=== PATIENT | female | born 1995 | race American Indian/Alaskan Native ===

== ENCOUNTER 2020-12-05 22:54 | Observation (INO) | payer OTHER ==
[2020-12-05] MEDS ORDERED: ALBUTEROL 2.5 MG/3 ML NEBU IH ONE (23:04)
[2020-12-05] MEDS ORDERED: SODIUM CHLORIDE 0.9% 1000 ML 1,000 ML IV ONE (23:04)
[2020-12-05] MEDS ORDERED: MAGNESIUM SULFATE 2 GM/50 ML BAG IV ONE (23:04)
[2020-12-05] MEDS ORDERED: IPRATROPIUM 0.02% NEBU 2.5 ML IH ONE (23:04)
--- NOTE | 2020-12-05 23:06 | Event Note ---
ED Screening Note Date of service: 12/05/20 Time: 23:06 ED Screening Note: 25-year-old -[place] female with a history of asthma comes in in respiratory distress. Patient states that she has a history of asthma and has been intubated in the past. This initial assessment/diagnostic orders/clinical plan/treatment(s) is/are subject to change based on patients health status, clinical progression and re- assessment by fellow clinical providers in the ED. Further treatment and workup at subsequent clinical providers discretion. Patient/guardian urged not to elope from the ED as their condition may be serious if not clinically assessed and managed. Initial orders include:
--- NOTE | 2020-12-05 23:23 | Emergency Department Report ---
ED Shortness of Breath HPI - General Chief Complaint: Adult Asthma Stated Complaint: SOB Time Seen by Provider: 12/05/20 23:12 Source: patient Mode of arrival: Ambulatory Limitations: No Limitations - History of Present Illness Initial Comments: Patient is a 25-year-old female that presents emergency room with complaints of difficulty breathing and shortness of breath, wheezing and cough. Patient states her symptoms been going on for 2 days. Patient states his symptoms are worsening. Patient states she has been intubated 3 times in the past. Patient states that she is compliant with her asthma medications. Patient denies chest pain. Patient denies fever and chills. Patient denies sputum. Patient dates her cough is dry. Patient denies recent travel. Patient denies recent international travel. Patient denies exposure to the novel coronavirus. Patient denies sick contacts. Patient denies fever and chills. . Patient denies diarrhea. Patient denies coming in contact with anybody with symptoms of the novel coronavirus. MD Complaint: shortness of breath -: Sudden Consistency: constant Improves With: rest Worsens With: exertion Known History Of: asthma Associated Symptoms: denies other symptoms Treatments Prior to Arrival: bronchodilator - Related Data Home Oxygen Therapy: No Allergies Allergy/AdvReac Type Severity Reaction Status Date / Time No Known Allergies Allergy Unverified 12/05/20 23:08 ED Review of Systems ROS: Stated complaint: SOB Other details as noted in HPI Constitutional: denies: chills, fever Eyes: denies: eye pain, eye discharge, vision change ENT: denies: ear pain, throat pain Respiratory: see HPI, cough, shortness of breath, SOB with exertion, SOB at rest, wheezing Cardiovascular: denies: chest pain, palpitations Endocrine: no symptoms reported Gastrointestinal: denies: abdominal pain, nausea, diarrhea Genitourinary: denies: urgency, dysuria, discharge Musculoskeletal: denies: back pain, joint swelling, arthralgia Skin: denies: rash, lesions Neurological: denies: headache, weakness, paresthesias Psychiatric: denies: anxiety, depression Hematological/Lymphatic: denies: easy bleeding, easy bruising ED Past Medical Hx - Past Medical History Previous Medical History?: Yes Hx Asthma: Yes Additional medical history: Intubated - Surgical History Past Surgical History?: No - Family History Family history: no significant - Social History Smoking Status: Never Smoker Substance Use Type: None ED Physical Exam - General Limitations: No Limitations General appearance: lethargic (But easily arousable.), in distress - Head Head exam: Present: atraumatic, normocephalic - Eye Eye exam: Present: normal appearance - ENT ENT exam: Present: mucous membranes dry - Neck Neck exam: Present: normal inspection - Respiratory Respiratory exam: Present: respiratory distress, wheezes, accessory muscle use, decreased breath sounds - Cardiovascular Cardiovascular Exam: Present: regular rate, normal rhythm, normal heart sounds. Absent: systolic murmur, diastolic murmur, rubs, gallop - GI/Abdominal GI/Abdominal exam: Present: soft, normal bowel sounds. Absent: distended, tenderness, guarding - Extremities Exam Extremities exam: Present: normal inspection - Back Exam Back exam: Present: normal inspection - Neurological Exam Neurological exam: Present: oriented X3 - Psychiatric Psychiatric exam: Present: normal affect, normal mood - Skin Skin exam: Present: warm, dry, intact, normal color. Absent: rash ED Course Vital Signs 12/05/20 12/05/20 12/05/20 22:59 23:30 23:35 Temperature 98.3 F 97.1 F L Pulse Rate 126 H 114 H 104 H Respiratory 16 24 27 H Rate Blood Pressure 123/103 134/97 Blood Pressure 147/90 [Left] O2 Sat by Pulse 94 100 Oximetry 12/05/20 12/05/20 12/06/20 23:39 23:45 00:01 Temperature Pulse Rate 133 H 132 H Respiratory 18 22 24 Rate Blood Pressure 179/110 163/75 Blood Pressure 134/97 [Left] O2 Sat by Pulse 100 100 Oximetry 12/06/20 12/06/20 12/06/20 00:15 00:31 00:45 Temperature Pulse Rate 115 H 116 H 111 H Respiratory 21 21 20 Rate Blood Pressure 156/87 127/71 128/80 Blood Pressure [Left] O2 Sat by Pulse 95 94 93 Oximetry 12/06/20 01:01 Temperature Pulse Rate 119 H Respiratory 18 Rate Blood Pressure 138/86 Blood Pressure [Left] O2 Sat by Pulse 100 Oximetry - Reevaluation(s) Reevaluation #1: Initial evaluation done. Patient have increased work to breathe. Patient was placed on BiPAP and given mag, Solu-Medrol and a DuoNeb. 12/05/20 23:23 0 Reevaluation #2: Patient is complaining of severe anxiety with the BiPAP. Patient will be given Ativan. 12/05/20 23:42 Reevaluation #3: Patient on BiPAP. Patient states her anxiety is better. Patient tolerating BiPAP better. Patient's work to breathe is improving. Patient's oxygen saturation is stable. 12/06/20 00:02 Reevaluation #4: I discussed all results with patient. I discussed plan of care with patient. Patient agrees with plan of care and admission. Patient to be admitted to the hospitalist service. 12/06/20 01:02 - Consultations Consultation #1: Hospitalist consulted for admission. Hospitalist to admit patient. 12/06/20 01:02 ED Medical Decision Making - Lab Data Result diagrams: 12/06/20 00:32 12/06/20 00:32 - Radiology Data Radiology results: report reviewed, image reviewed interpreted by me: Chest x-ray: No pneumonia, no pneumothorax, no foreign body, no osseous findings, no acute findings CHEST 1 VIEW 12/05/2020 11:25 PM INDICATION / CLINICAL INFORMATION: sob. COMPARISON: None available. FINDINGS: SUPPORT DEVICES: None. HEART / MEDIASTINUM: No significant abnormality. LUNGS / PLEURA: No significant pulmonary or pleural abnormality. No pneumothorax. ADDITIONAL FINDINGS: No significant additional findings. IMPRESSION: No acute abnormality. - Medical Decision Making Patient is a 25-year-old female that presents emergency room with shortness of breath and difficulty breathing. Patient found to be in status asthmaticus. Patient having increased work to breathe, cough and wheezing. Patient given a nebulizer and Solu-Medrol and magnesium and the patient continued to have increased work to breathe patient was then placed on BiPAP. Patient tolerated bypass but was making her anxious so patient was given Ativan. Patient labs done which were essentially unremarkable. Patient's chest x-ray was negative for acute finding. I personally reviewed the chest x-ray. Critical care time documented due to the multiple reassessments, prolonged time at the bedside, interpretation of diagnostics and labs. - Differential Diagnosis Status asthmaticus, shortness of breath, pneumonia, wheezing, cough, hypoxi Critical Care Time: Yes Critical care time in (mins) excluding proc time.: 35 Critical care attestation.: If time is entered above; I have spent that time in minutes in the direct care of this critically ill patient, excluding procedure time. Critical Care Time: 35 minutes Critical care time documented due to the multiple reassessments, prolonged time at the bedside, interpretation of diagnostics and labs. ED Disposition Clinical Impression: Anxiety, SOB (shortness of breath) Respiratory failure Qualifiers: Chronicity: acute Respiratory failure complication: hypoxia Qualified Code(s): J96.01 - Acute respiratory failure with hypoxia Status asthmaticus Qualifiers: Asthma severity: severe Asthma persistence: persistent Qualified Code(s): J45.52 - Severe persistent asthma with status asthmaticus Disposition: 09 OP ADMIT IP TO THIS HOSP Is pt being admited?: Yes Does the pt Need Aspirin: No Condition: Critical Time of Disposition: 01:02
[2020-12-05] MEDS ORDERED: methylPREDNISolone Sod Succinate 125 MG/2 ML INJ IV ONE (23:30)
[2020-12-05] MEDS ORDERED: methylPREDNISolone Sod Suc 1,000 MG in SODIUM CHLORIDE 0.9% 250ML 250 ML IV ONE (23:44)
[2020-12-05] MEDS ORDERED: LORazepam 2 MG/ML VIAL IV ONE (23:47)
--- NOTE | 2020-12-06 00:49 | XRay Report ---
CHEST 1 VIEW 12/05/2020 11:25 PM INDICATION / CLINICAL INFORMATION: sob. COMPARISON: None available. FINDINGS: SUPPORT DEVICES: None. HEART / MEDIASTINUM: No significant abnormality. LUNGS / PLEURA: No significant pulmonary or pleural abnormality. No pneumothorax. ADDITIONAL FINDINGS: No significant additional findings. IMPRESSION: No acute abnormality. Signer Name: Maykel Braun MD Signed: 12/06/2020 12:45 AM Workstation Name: [id number]
[2020-12-06 00:55] LABS: Basophils % (Auto) 0.4 % (0.0-1.8); Eosinophils # (Auto) 0.6 K/mm3 (0.0-0.4); Eosinophils % (Auto) 7.3 % (0.0-4.3); Hematocrit 37.1 % (30.3-42.9); Hemoglobin 12.5 gm/dl (10.1-14.3); Lymphocytes # (Auto) 1.9 K/mm3 (1.2-5.4); Lymphocytes % (Auto) 23.9 % (13.4-35.0); Mean Corpuscular HGB Conc 34 % (30-34); Mean Corpuscular Volume 89 fl (79-97); Monocytes # (Auto) 0.7 K/mm3 (0.0-0.8); Monocytes % (Auto) 8.2 % (0.0-7.3); Platelet Count 211 K/mm3 (140-440); Red Blood Count 4.19 M/mm3 (3.65-5.03); Red Cell Distribution Width 13.3 % (13.2-15.2)
[2020-12-06 01:13] LABS: Alanine Aminotransferase 12 units/L (7-56); Albumin 4.2 g/dL (3.9-5); BUN/Creatinine Ratio 8; Blood Urea Nitrogen 7 mg/dL (7-17); Calcium 8.8 mg/dL (8.4-10.2); Hemolysis Index 16
[2020-12-06] MEDS ORDERED: IPRATROPIUM 0.02% NEBU 2.5 ML IH ONE ×2 (01:43→01:52)
[2020-12-06] MEDS ORDERED: ALBUTEROL 2.5 MG/3 ML NEBU IH ONE ×2 (01:43→01:52)
--- NOTE | 2020-12-06 02:28 | History and Physical Report ---
History of Present Illness Date of examination: 12/06/20 Date of admission: 12/06/20 01:23 Chief complaint: Asthma History of present illness: Patient is a 25-year-old female that presents emergency room with complaints of difficulty breathing and shortness of breath, wheezing and cough. Patient states her symptoms been going on for 2 days. Patient states his symptoms are worsening. Patient states she has been intubated 3 times in the past. Patient states that she is compliant with her asthma medications. Patient denies chest pain. Patient denies fever and chills. Patient denies sputum. Patient dates her cough is dry. ED work-up WBC 8.0, hemoglobin 12.5, platelets 211, sodium level 139, potassium 3.5 Glucose 121, creatinine 0.9, chest x-ray no acute abnormality. Patient seen in ED at bedside. She is not in respiratory distress secondary to asthma extubation/flareup BiPAP on. Blood pressure 130/91, heart rate is 126. Patient saturation is 100% on a rate of 12 on BiPAP. Reviewed lab, medication record, vital signs. Histotechnologist Supervisor consulted. Past History Past Medical History: other (hx of asthma with multiple intubation) Social history: no significant social history Family history: no significant family history Medications and Allergies Allergies Allergy/AdvReac Type Severity Reaction Status Date / Time No Known Allergies Allergy Unverified 12/05/20 23:08 Review of Systems Constitutional: fatigue Ears, nose, mouth and throat: no epistaxis, no bleeding gums Breasts: no pain, no skin changes Cardiovascular: shortness of breath Respiratory: shortness of breath, wheezing Gastrointestinal: no melena Rectal: no hemorrhoids Musculoskeletal: no neck stiffness Integumentary: no rash, no pruritis Neurological: no head injury Psychiatric: anxiety Hematologic/Lymphatic: no easy bruising, no easy bleeding Allergic/Immunologic: no urticaria Exam - Constitutional Vitals: Temp Pulse Resp BP Pulse Ox 97.1 F L 110 H 18 143/80 100 12/05/20 23:30 12/06/20 02:08 12/06/20 02:08 12/06/20 02:01 12/06/20 02:08 General appearance: Present: severe distress, well-nourished, obese, other (Severe respiratory distress -on BIPAP) - EENT Eyes: Present: PERRL ENT: hearing intact, clear oral mucosa - Neck Neck: Present: supple, normal ROM - Respiratory Respiratory effort: normal Respiratory: bilateral: CTA - Cardiovascular Heart Sounds: Present: S1 & S2. Absent: rub, click - Extremities Extremities: pulses symmetrical, No edema Peripheral Pulses: within normal limits - Abdominal General gastrointestinal: Present: soft, non-tender, non-distended, normal bowel sounds Female genitourinary: Present: normal - Integumentary Integumentary: Present: clear, warm, dry - Musculoskeletal Musculoskeletal: gait normal, strength equal bilaterally - Psychiatric Psychiatric: appropriate mood/affect, intact judgment & insight - Neurologic Neurologic: CNII-XII intact, moves all extremities Results - Labs CBC & Chem 7: 12/06/20 00:32 12/06/20 00:32 Labs: Abnormal lab results 12/06/20 12/06/20 Range/Units 00:32 00:32 [place] % (Auto) 8.2 H (0.0-7.3) % Eos % (Auto) 7.3 H (0.0-4.3) % Eos # (Auto) 0.6 H (0.0-0.4) K/mm3 Potassium 3.5 L (3.6-5.0) mmol/L Glucose 121 H (65-100) mg/dL Total Protein 6.1 L (6.3-8.2) g/dL Assessment and Plan - Patient Problems (1) Status asthmaticus Current Visit: Yes Status: Acute Qualifiers: Asthma severity: severe Asthma persistence: persistent Qualified Code(s): J45.52 - Severe persistent asthma with status asthmaticus Plan to address problem: Secondary to extubation On BiPAP, monitor oxygen sat. Bronchodilator and systemic steroid ABGs, head of strategy and head of strategy consult Chest x-ray showed no acute finding (2) Acute respiratory failure with hypoxia Current Visit: Yes Status: Acute Plan to address problem: Respiratory failure secondary to asthma flare Continue BiPAP and monitor oxygen saturation (3) Anxiety Current Visit: Yes Status: Acute Plan to address problem: Antianxiety med as needed (4) Obesity due to excess calories Current Visit: Yes Status: Acute Plan to address problem: Will discussed lifestyle modification, including healthy diet and regular exercise when patient is stable (5) DVT prophylaxis Current Visit: Yes Status: Acute Plan to address problem: Subcutaneous Lovenox
[2020-12-06] MEDS ORDERED: MAGNESIUM HYDROXIDE (MOM) ORAL LIQD UDC PO PRN (02:30)
[2020-12-06] MEDS ORDERED: SENNOSIDES 8.6 MG TAB PO PRN (02:30)
[2020-12-06] MEDS ORDERED: METOCLOPRAMIDE 10 MG/2 ML INJ IV PRN (02:30)
[2020-12-06] MEDS ORDERED: ALUM-MAG HYDROXIDE-SIMETHICONE 200-200-20MG/5ML ORAL LIQD 30 ML PO PRN (02:30)
[2020-12-06] MEDS ORDERED: ACETAMINOPHEN 325 MG TAB PO PRN (02:30)
[2020-12-06] MEDS ORDERED: ONDANSETRON 4 MG/2 ML INJ IV PRN (02:30)
[2020-12-06] MEDS ORDERED: AZITHROMYCIN/NS 500 MG/250 ML 500 MG/250 ML BAG IV SCH (03:00)
[2020-12-06] MEDS ORDERED: ALBUTEROL 2.5 MG/3 ML NEBU IH PRN (05:19)
[2020-12-06] MEDS ORDERED: ALPRAZolam 0.25 MG TAB PO PRN (05:29)
[2020-12-06 05:40] VITALS: BP 101/35
[2020-12-06] MEDS ORDERED: methylPREDNISolone Sod Succinate 40 MG/1 ML INJ IV SCH (06:00)
[2020-12-06] MEDS ORDERED: ARFORMOTEROL 15 MCG/2 ML NEBU IH SCH (08:00)
[2020-12-06] MEDS ORDERED: BUDESONIDE 0.5 MG/2 ML NEBU IH SCH (08:00)
[2020-12-06] MEDS ORDERED: IPRATROPIUM/ALBUTEROL SULFATE 3 ML AMPUL.NEB IH SCH (08:00)
--- NOTE | 2020-12-06 09:06 | Progress Note ---
Assessment and Plan Assessment and plan: Acute asthma exacerbation Acute hypoxic respiratory failure\ Anxiety disorder Obesity due to excess calories 12/06/2020. Patient has been weaned off of BiPAP and will continue supplemental oxygen for now. Continue BiPAP as clinically indicated. Chest x-ray showed no acute finding. Follow-up serial ABGs. Continue bronchodilators/nebulizers. Continue IV steroids and empiric antibiotic. History Interval history: No new issues overnight. Hospitalist Physical - Constitutional Vitals: Temp Pulse Resp BP Pulse Ox 97.2 F L 127 H 20 101/35 94 12/06/20 05:08 12/06/20 07:13 12/06/20 07:13 12/06/20 05:08 12/06/20 05:08 General appearance: Present: no acute distress, well-nourished, obese, other (Severe respiratory distress -on BIPAP) - EENT Eyes: Present: PERRL, EOM intact ENT: hearing intact, clear oral mucosa, dentition normal - Neck Neck: Present: supple, normal ROM - Respiratory Respiratory effort: normal Respiratory: bilateral: CTA - Cardiovascular Rhythm: regular Heart Sounds: Present: S1 & S2. Absent: gallop, rub - Extremities Extremities: no ischemia, No edema, Full ROM - Abdominal General gastrointestinal: soft, non-tender, non-distended, normal bowel sounds - Integumentary Integumentary: Present: clear, warm, dry - Neurologic Neurologic: CNII-XII intact, moves all extremities Results - Labs CBC & Chem 7: 12/06/20 00:32 12/06/20 00:32 Labs: Laboratory Last Values WBC 8.0 K/mm3 (4.5-11.0) 12/06/20 00:32 RBC 4.19 M/mm3 (3.65-5.03) 12/06/20 00:32 Hgb 12.5 gm/dl (10.1-14.3) 12/06/20 00:32 Hct 37.1 % (30.3-42.9) 12/06/20 00:32 MCV 89 fl (79-97) 12/06/20 00:32 MCH 30 pg (28-32) 12/06/20 00:32 MCHC 34 % (30-34) 12/06/20 00:32 RDW 13.3 % (13.2-15.2) 12/06/20 00:32 Plt Count 211 K/mm3 (140-440) 12/06/20 00:32 Lymph % (Auto) 23.9 % (13.4-35.0) 12/06/20 00:32 [place] % (Auto) 8.2 % (0.0-7.3) H 12/06/20 00:32 Eos % (Auto) 7.3 % (0.0-4.3) H 12/06/20 00:32 Baso % (Auto) 0.4 % (0.0-1.8) 12/06/20 00:32 Lymph # (Auto) 1.9 K/mm3 (1.2-5.4) 12/06/20 00:32 [place] # (Auto) 0.7 K/mm3 (0.0-0.8) 12/06/20 00:32 Eos # (Auto) 0.6 K/mm3 (0.0-0.4) H 12/06/20 00:32 Baso # (Auto) 0.0 K/mm3 (0.0-0.1) 12/06/20 00:32 Seg Neutrophils % 60.2 % (40.0-70.0) 12/06/20 00:32 Seg Neutrophils # 4.8 K/mm3 (1.8-7.7) 12/06/20 00:32 Sodium 139 mmol/L (137-145) 12/06/20 00:32 Potassium 3.5 mmol/L (3.6-5.0) L 12/06/20 00:32 Chloride 104.5 mmol/L (98-107) 12/06/20 00:32 Carbon Dioxide 25 mmol/L (22-30) 12/06/20 00:32 Anion Gap 13 mmol/L 12/06/20 00:32 BUN 7 mg/dL (7-17) 12/06/20 00:32 Creatinine 0.9 mg/dL (0.6-1.2) 12/06/20 00:32 Estimated GFR > 60 ml/min 12/06/20 00:32 BUN/Creatinine Ratio 8 % 12/06/20 00:32 Glucose 121 mg/dL (65-100) H 12/06/20 00:32 Calcium 8.8 mg/dL (8.4-10.2) 12/06/20 00:32 Total Bilirubin 0.20 mg/dL (0.1-1.2) 12/06/20 00:32 AST 14 units/L (5-40) 12/06/20 00:32 ALT 12 units/L (7-56) 12/06/20 00:32 Alkaline Phosphatase 39 units/L (35-129) 12/06/20 00:32 Total Protein 6.1 g/dL (6.3-8.2) L 12/06/20 00:32 Albumin 4.2 g/dL (3.9-5) 12/06/20 00:32 Albumin/Globulin Ratio 2.2 % 12/06/20 00:32 Carreon/IV: Voiding Method Toilet Active Medications - Current Medications Current Medications: Generic Name Dose Route Start Last Admin Trade Name Freq PRN Reason Stop Dose Admin Acetaminophen 650 mg 12/06/20 02:30 Acetaminophen 325 Mg Tab PO Q4H PRN Pain MILD(1-3)/Fever >100.5/CORTÉS Al Hydrox/Mg Hydrox/Simethicone 30 ml 12/06/20 02:30 Alum-Mag Hydroxide-Simethicone [id number]/5ml Oral Liqd 30 Ml PO Q4H PRN Indigestion Albuterol 2.5 mg 12/06/20 05:19 Albuterol 2.5 Mg/3 Ml Nebu IH Q4HRT PRN Shortness Of Breath Albuterol/Ipratropium 1 ampul 12/06/20 08:00 12/06/20 07:13 Ipratropium/Albuterol Sulfate 3 Ml Ampul.Neb IH 1 ampul TIDRT DAVID Administration Alprazolam 0.25 mg 12/06/20 05:29 Alprazolam 0.25 Mg Tab PO Q8H PRN Anxiety Arformoterol Tartrate 15 mcg 12/06/20 08:00 12/06/20 07:13 Arformoterol 15 Mcg/2 Ml Nebu IH 15 mcg Q12HRT DAVID Administration Budesonide 0.5 mg 12/06/20 08:00 12/06/20 07:13 Budesonide 0.5 Mg/2 Ml Nebu IH 0.5 mg Q12HRT DAVID Administration Enoxaparin Sodium 40 mg 12/06/20 10:00 Enoxaparin 40 Mg/0.4 Ml Inj SUB-Q DAILY [facility] Protocol Famotidine 20 mg 12/06/20 10:00 Famotidine 20 Mg Tab PO BID [facility] Azithromycin 500 mg in 250 mls @ 250 mls/hr 12/06/20 03:00 Zithromax/Ns IV Q24HR [facility] Magnesium Hydroxide 30 ml 12/06/20 02:30 Magnesium Hydroxide (Mom) Oral Liqd Udc PO Q4H PRN Constipation Methylprednisolone Sodium Succinate 40 mg 12/06/20 06:00 12/06/20 06:38 Methylprednisolone Sod Succinate 40 Mg/1 Ml Inj IV 40 mg Q8HR [facility] Administration Metoclopramide HCl 10 mg 12/06/20 02:30 Metoclopramide 10 Mg/2 Ml Inj IV Q6H PRN Nausea And Vomiting Ondansetron HCl 4 mg 12/06/20 02:30 Ondansetron 4 Mg/2 Ml Inj IV Q8H PRN Nausea And Vomiting Senna 8.6 mg 12/06/20 02:30 Sennosides 8.6 Mg Tab PO Q12HR PRN Constipation Sodium Chloride 10 ml 12/06/20 10:00 Sodium Chloride 0.9% 10 Ml Flush Syringe IV BID [facility] Sodium Chloride 10 ml 12/06/20 02:30 Sodium Chloride 0.9% 10 Ml Flush Syringe IV PRN PRN LINE FLUSH
[2020-12-06] MEDS ORDERED: FAMOTIDINE 20 MG TAB PO SCH (10:00)
[2020-12-06] MEDS ORDERED: ENOXAPARIN 40 MG/0.4 ML INJ SUB-Q SCH (10:00)
--- NOTE | 2020-12-06 12:18 | Discharge Summary ---
Providers - Providers Date of Admission: 12/06/20 01:23 Date of discharge: 12/06/20 Attending physician: NAYAN DAVIDSON 12/06/20 02:30 Consult to Physician [CONS] Routine Comment: Consulting Provider: SAMANTHA NOVAK Physician Instructions: Reason For Exam: asthma [facility] Reason for admission: ashma exac Condition: Critical Hospital course: 25 yo presented through Ed and admitted with dx of Acute asthma exacerbation, Acute hypoxic respiratory failure, Anxiety disorder and Obesity due to excess calories. Patient initially required Bipap but later weaned off of BiPAP and needed continue supplemental oxygen. Chest x-ray showed no acute finding. Plan was to Follow-up serial ABGs, Continue bronchodilators/nebulizers. Continue IV steroids and empiric antibiotic. However, pt decided to signout AMA. Risks explained. D/C time 35 min Disposition: DC-07 LEFT AGAINST MED ADVICE Core Measure Documentation - Palliative Care Palliative Care/ Comfort Measures: Not Applicable - Core Measures Any of the following diagnoses?: none Exam - Constitutional Vitals: Temp Pulse Resp BP Pulse Ox 97.2 F L 127 H 20 101/35 94 12/06/20 05:08 12/06/20 07:13 12/06/20 07:13 12/06/20 05:08 12/06/20 05:08 [facility] [place] [Primary Care Provider] - 3-5 Days
== END 2020-12-06 10:12 | disposition left against medical advice (07) ==
LOC: ED 22:54 → 3A 12-06 01:23
PROVIDERS: ADMIT Internal Medicine Geriatric Medicine; ATTEND Hospitalist
DX: J96.01 Acute respiratory failure with hypoxia (principal); J45.52 Severe persistent asthma with status asthmaticus; F41.9 Anxiety disorder, unspecified; E66.9 Obesity, unspecified; Z98.890 Other specified postprocedural states
CPT/HCPCS: 36415; 71045; 80053; 85025; 94640; 94644; 96365; 96375; 96376; 99291; G0378; J2060; J2920; J2930; J3475; J7030; J7050